=== PATIENT | male | born 1995 | race Hispanic/Latino ===

== ENCOUNTER 2024-03-03 12:22 | Emergency (ER) | payer SELFPAY ==
[~2024-03-03] VITALS: Ht 177.8 cm; Wt 79.4 kg
[2024-03-03 12:22] VITALS: BP 148/90; PULSE 76; RESP 18; TEMP 98.5; O2SAT 99
[2024-03-03 13:44] VITALS: BP 128/64; PULSE 74; RESP 18; O2SAT 96
[2024-03-03 15:28] VITALS: BP 118/53; PULSE 64; RESP 18; O2SAT 96
== END 2024-03-03 15:59 | disposition home or self-care (01) ==
LOC: ER 12:22 → EDBD 12:22 → ER 15:59
DX: S16.1XXA Strain of muscle, fascia and tendon at neck level, initial encounter (principal); M45.9 Ankylosing spondylitis of unspecified sites in spine; Z88.0 Allergy status to penicillin; Z20.822 Contact with and (suspected) exposure to COVID-19; X58.XXXA Exposure to other specified factors, initial encounter; Y93.89 Activity, other specified; Y92.89 Other specified places as the place of occurrence of the external cause; Y99.8 Other external cause status
CPT/HCPCS: 71045; 72040; 80307; 87426; 93005; 99285